=== PATIENT | female | born 1990 | race Caucasian/White ===

== ENCOUNTER 2021-05-08 02:57 | Emergency (ER) | payer OTHER ==
[2021-05-08] MEDS ORDERED: CLINDAMYCIN HC300 MG PO (03:51)
[2021-05-09] MEDS ORDERED: HURRICAINE57 G1 MM (03:45)
== END 2021-05-08 04:12 | disposition home or self-care (01) ==
LOC: ER1 02:57
DX: K05.10 Chronic gingivitis, plaque induced (principal); R68.84 Jaw pain; Z88.0 Allergy status to penicillin; Z91.013 Allergy to seafood; F41.9 Anxiety disorder, unspecified
CPT/HCPCS: 99283

== ENCOUNTER 2021-05-09 01:56 | Emergency (ER) | payer OTHER ==
[~2021-05-09 01:56] MED LIST: CLINDAMYCIN HC300 MG PO
[2021-05-09] MEDS ORDERED: HURRICAINE57 G1 MM (03:45)
== END 2021-05-09 04:00 | disposition home or self-care (01) ==
LOC: ER1 01:56
DX: K08.89 Other specified disorders of teeth and supporting structures (principal); R68.84 Jaw pain
CPT/HCPCS: 64400; 99283